=== PATIENT | female | born 1980 | race Caucasian/White ===

== ENCOUNTER 2017-10-30 15:54 | Emergency (ER) | payer BC ==
[2017-10-30 16:21] VITALS: O2SAT 99
[2017-10-30] MEDS ORDERED: MOTRIN 400 MG PO ONE (16:40)
[2017-10-30] MEDS ORDERED: XYLOCAINE 1% HCL 20 ML MDV IJ ONE (16:42)
--- NOTE | 2017-10-30 16:43 | ERPHSYRPT ---
- History of Present Illness Time Seen by Provider: 10/30/17 16:20 Source: patient Exam Limitations: clinical condition Patient Subjective Stated Complaint: FELL THIS MORNING COMING OUT OF HOUSE DOWN STEPS. STEPS WERE WET FROM RAIN. STATES SWELLING AND PAIN IN LEFT FOOT AND ANKLE , WELL RIGHT ELBOW GOT PROGRESSIVELY WORSENED THOUGHOUT DAY. Triage Nursing Assessment: LEFT FOOT MILDLY SWOLLEN, BRUISING TO TOP OF FOOT. RIGHT ELBOW EDEMA. 3CM LACERATION JUST DISTAL TO ELBOW. Physician History: PATIENT SLIPPED ONTO STEPS, FELL AND INJURED THE TOP OF HER LEFT FOOT AND RIGHT ELBOW. DENIES HEAD, NECK OR BACK INJURY. PATIENT COMPLAINS OF PAIN IN FOOT AND ELBOW. Occurred: this morning Reason for Fall: slipped Injuries/Pain Location: upper extremity, lower extremity Loss of Consciousness: no loss of consciousness Severity of Pain-Max: moderate Severity of Pain-Current: moderate Modifying Factors: Improves With: movement Associated Symptoms (Fall): other (RIGHT ELBOW PAIN) Allergies/Adverse Reactions: No Known Drug Allergies Allergy (Verified 08/07/15 15:39) Home Medications: Phentermine HCl [Adipex-P] 37.5 mg PO DAILY 10/30/17 [History] Hx Tetanus, Diphtheria Vaccination/Date Given: Yes Hx Influenza Vaccination/Date Given: No Hx Pneumococcal Vaccination/Date Given: No Immunizations Up to Date: Yes - Review of Systems Constitutional: No Symptoms Musculoskeletal: Injury, Joint Pain, Joint Swelling Neurological: No Symptoms - Past Medical History Pertinent Past Medical History: Yes Neurological History: Migraines History: Other Female Reproductive Disorders: Other Other Medical History: ectopic rupture, miscarriage - Past Surgical History Past Surgical History: Yes Female Surgical History: Other Other Surgical History: ectopic surgery, TUBE REMOVAL - Social History Smoking Status: Former smoker Exposure to second hand smoke: Yes Drug Use: none Patient Lives Alone: No - Female History Hx Last Menstrual Period: 10/14/17 Hx Now: No - Nursing Vital Signs Nursing Vital Signs: Initial Vital Signs Temperature 98.8 F 10/30/17 15:55 Pulse Rate 100 H 10/30/17 15:55 Respiratory Rate 22 10/30/17 15:55 Blood Pressure 123/89 10/30/17 15:55 O2 Sat by Pulse Oximetry 99 10/30/17 15:55 Pain Scale Pain Intensity 2 - Physical Exam General Appearance: mild distress Extremity Exam: swelling (PROXIMAL LEFT FOOT MID 3RD TO 5TH METATARSAL, NO ECCHYMOSIS OR CREPITUS), tenderness ( ), other (LEFT PEDIS PULSE 2+, THERE IS A 1.5 CM LACERATION PROXIMAL FOREARM DORSUM, NO CREPITUS NO EVIDENC OF FOREIGN BODY) Neurologic Exam: alert, oriented x 3 SpO2: 99 Oxygen Delivery: Room Air Procedures - Laceration/Wound Repair Right Arm Wound Location: Right (FOREARM) Wound Length (cm): 1.5 Wound's Depth, Shape: superficial, linear Wound Explored: clean Irrigated: Yes Hibiclens Prep: Yes Anesthesia: local, 1% Lidocaine Volume Anesthetic (ccs): 3 Wound Repaired With: sutures Suture Size/Type: 4-0 Number of Sutures: 4 Layer Closure?: No - Radiology Exams Right Elbow X-ray Interpretation: Interpreted by me, Negative, No Fracture (NO DISLOCATION) Left Foot X-ray Interpretation: Interpreted by me, Negative, No Fracture Ordered Tests: Active Orders 24 hr Category Date Time Status ELBOW (MINIMUM 3 VIEWS) Stat Exams 10/30/17 16:42 Taken FOOT (MINIMUM 3 VIEWS) Routine Exams 10/30/17 Ordered Medication Summary Discontinued Medications Generic Name Dose Route Start Last Admin Trade Name Freq PRN Reason Stop Dose Admin Ibuprofen 400 mg 10/30/17 16:40 10/30/17 16:45 Motrin 400 Mg PO 10/30/17 16:41 400 mg STAT ONE Administration Ibuprofen Confirm 10/30/17 16:44 Motrin 400 Mg Administered 10/30/17 16:45 Dose 400 mg .ROUTE .STK-MED ONE Lidocaine HCl 3 ml 10/30/17 16:42 10/30/17 16:45 Xylocaine 1% Hcl 20 Ml Mdv IJ 10/30/17 16:43 3 ml STAT ONE Administration - Progress Progress Note: 10/30/17 18:06 ADMINISTERED CRUTCHES, AND MOTRIN 600MG ORALLY Counseled pt/family regarding: diagnosis, rad results - Departure Time of Disposition: 18:13 Departure Disposition: Home Clinical Impression: LACERATION RIGHT FOREARM, RIGHT FOREARM CONTUSION, LEFT FOOT CONTUSION Condition: Stable Critical Care Time: No Referrals: JOSE CASTELLON NP [Primary Care Provider] - Additional Instructions: AMBULATE USING CRUTCHES NONWEIGHT BEARING LEFT FOOT X 1 WEEK. APPLY ICE OVER FOOT SWELLING AND FOREARM SWELLING EVERY 4 HOURS, 30 MINUTES FOR 48 HOURS. MOTRIN 600MG EVERY 6 HOURS FOR PAIN, TYLENOL #3 EVERY 6 HOURS FOR SEVERE PAIN. HAVE STITCHES REMOVED AT 10 DAYS. ANTIBIOTIC KEFLEX 500MG EVERY 8 HOURS FOR 7 DAYS. WATCH FOR SIGNS OF INFECTION, REDNESS, SWELLING OR DRAINAGE. Prescriptions: Codeine Phosphate/APAP #3 [Tylenol #3 Tablet] 1 tab PO Q6H PRN PRN #10 tablet PRN Reason: Pain Ibuprofen 600 mg PO Q6H PRN PRN #20 tablet PRN Reason: Pain Cephalexin Mh 500 mg [Keflex 500 mg] 500 mg PO TID #21 capsule
[2017-10-30] MEDS ORDERED: MOTRIN 400 MG ONE (16:44)
[2017-10-30 17:34] VITALS: BP 118/80; PULSE 92
--- NOTE | 2017-10-31 11:27 | XRAY ---
Exam: 3 view right elbow series from 10/30/2017. Comparison: None. Indication: Patient fell down stairs today, complains of right elbow pain and limited range of motion. Findings: AP, lateral, and oblique images of the right elbow were obtained. I see no acute fracture, dislocation, or joint effusion. The right elbow joint space appears well-preserved and reveals smooth articular margins. No periarticular soft tissue calcifications are evident. Impression: 1. No acute right elbow fracture, dislocation, or joint effusion is seen.
--- NOTE | 2017-10-31 13:46 | XRAY ---
Exam: 3 view left foot series from 10/30/2017. Comparison: None. Indication: 37-year-old female fell down stairs, complains of left foot pain and limited range of motion. Findings: AP, oblique, and lateral radiographs of the left foot were obtained. I see no acute left foot fracture or dislocation. There is a high plantar arch of the hindfoot on the lateral radiograph. The joint spaces appear unremarkable. No radiopaque soft tissue foreign body is seen. There is a tiny calcification adjacent to the medial aspect of the distal left fifth metatarsal head. I believe this is old and nonspecific. The base of the left fifth metatarsal appears intact. 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 No other bone lesion is seen. Impression: 1. No acute left foot fracture or dislocation is seen. 2. The patient is incidentally noted to have a high plantar arch on the lateral radiograph.
== END 2017-10-30 18:30 | disposition home or self-care (01) ==
LOC: ED 15:54
PROC: 0HQDXZZ Repair Right Lower Arm Skin, External Approach (ICD-10-PCS; principal; 2017-10-30)
DX: S51.811A Laceration without foreign body of right forearm, initial encounter (principal); S90.32XA Contusion of left foot, initial encounter; S50.11XA Contusion of right forearm, initial encounter; M79.672 Pain in left foot; M25.521 Pain in right elbow; W01.0XXA Fall on same level from slipping, tripping and stumbling without subsequent striking against object, initial encounter; Y93.01 Activity, walking, marching and hiking; Y92.009 Unspecified place in unspecified non-institutional (private) residence as the place of occurrence of the external cause
CPT/HCPCS: 12001; 73080; 73630; 96372; 99284; A9270-GY

== ENCOUNTER 2021-04-01 18:51 | Emergency (ER) | payer BC ==
--- NOTE | 2021-04-01 18:57 | ERPHSYRPT ---
- History of Present Illness Time Seen by Provider: 04/01/21 18:57 Source: patient Physician History: This is a 40-year-old white female who presents to the emergency department soon after a pull-up bar had fallen and hit the top of her head. She stated that it run her [place] but did not cause her to lose consciousness. She does feel dizzy and nauseated. She has not vomited. She is not on any anticoagulation therapy. She does have a history of migraine headaches. Occurred: just prior to arrival Severity: mild Head Injury Location: parietal Method of Injury: direct blow Loss of Consciousness: no loss of consciousness, dazed Associated Symptoms: nausea, other (Dizziness) Allergies/Adverse Reactions: No Known Drug Allergies Allergy (Verified 04/01/21 18:56) Hx Tetanus, Diphtheria Vaccination/Date Given: Yes Hx Influenza Vaccination/Date Given: No Hx Pneumococcal Vaccination/Date Given: No Travel Risk - International Travel Have you traveled outside of the country in past 3 weeks: No - Coronavirus Screening Are you exhibiting any of the following symptoms?: No Close contact with a COVID-19 positive Pt in past 14-21 Days: No - Review of Systems Constitutional: No Symptoms Eyes: No Symptoms Ears, Nose, & Throat: No Symptoms Respiratory: No Symptoms Cardiac: No Symptoms Abdominal/Gastrointestinal: No Symptoms Genitourinary Symptoms: No Symptoms Musculoskeletal: No Symptoms Skin: No Symptoms Neurological: Dizziness, Headache Psychological: No Symptoms Endocrine: No Symptoms Hematologic/Lymphatic: No Symptoms Immunological/Allergic: No Symptoms All Other Systems: Reviewed and Negative - Past Medical History Pertinent Past Medical History: Yes Neurological History: Migraines ENT History: No Pertinent History Cardiac History: No Pertinent History Respiratory History: No Pertinent History Endocrine Medical History: No Pertinent History Musculoskeletal History: No Pertinent History GI Medical History: No Pertinent History History: No Pertinent History Psycho-Social History: No Pertinent History Female Reproductive Disorders: No Pertinent History, Other Other Medical History: ectopic rupture, miscarriage - Past Surgical History Past Surgical History: Yes Female Surgical History: Other Other Surgical History: ectopic surgery, TUBE REMOVAL - Social History Smoking Status: Former smoker Exposure to second hand smoke: Yes Drug Use: none Patient Lives Alone: No - Nursing Vital Signs Nursing Vital Signs: Initial Vital Signs Temperature 97.6 F 04/01/21 18:57 Pulse Rate 102 H 04/01/21 18:57 Respiratory Rate 18 04/01/21 18:57 Blood Pressure 173/109 04/01/21 18:57 O2 Sat by Pulse Oximetry 100 04/01/21 18:57 Pain Scale Pain Intensity 4 - Joellen Coma Score Best Eye Response ([place]): (4) open spontaneously Best Verbal Response ([place]): (5) oriented Best Motor Response ([place]): (6) obeys commands [place] Total: 15 - Physical Exam General Appearance: no apparent distress, alert, anxiety Head Injury: tenderness (Parietal region. 1 to 2 mm puncture site without active bleeding present.), No active bleeding, No raccoon eyes Eye Exam: bilateral eye: normal inspection, PERRL, EOMI ENT Exam: airway nml Neck Exam: supple, trachea midline, full range of motion, normal alignment, normal inspection Cardiovascular/Respiratory Exam: chest non-tender, no respiratory distress Gastrointestinal/Abdominal Exam: non tender Pelvic Exam: not done Rectal Exam: not done Back Exam: normal inspection, normal range of motion, No CVA tenderness, No vertebral tenderness Extremity Exam: non-tender, normal range of motion, normal inspection Mental Status Exam: alert, oriented x 3, 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 Exam: normal hearing, normal speech, PERRL Coordination/Gait Exam: normal gait, normal cerebellar function Motor/Sensory Exam: no motor deficit, no sensory deficit Skin Exam: normal color, warm, dry Lymphatic Exam: No adenopathy SpO2 Interpretation: normal O2 Delivery: Room Air - Course Nursing assessment & vital signs reviewed: Yes Ordered Tests: Active Orders 24 hr Category Date Time Status HEAD WITHOUT CONTRAST [CT] Stat Exams 04/01/21 19:06 Completed Medication Summary Discontinued Medications Generic Name Dose Route Start Last Admin Trade Name Stephane PRN Reason Stop Dose Admin Hydrocodone Bitart/Acetaminophen 1 tab 04/01/21 19:22 04/01/21 19:27 Hydrocodone/Apap 5/325 Mg Tablet PO 04/01/21 19:23 1 tab STAT ONE Administration Hydrocodone Bitart/Acetaminophen Confirm 04/01/21 19:26 Hydrocodone/Apap 5/325 Mg Tablet Administered 04/01/21 19:27 Dose 1 tab .ROUTE .STK-MED ONE - Progress Progress: improved Progress Note: 04/01/21 20:29 CAT scan of the head shows no acute intracranial abnormality. Counseled pt/family regarding: diagnosis, need for follow-up, rad results - Departure Departure Disposition: Home Clinical Impression: Head contusion Condition: Stable Critical Care Time: No Referrals: JOSE CASTELLON NP [Primary Care Provider] - Follow up/PCP as directed Additional Instructions: Keep the area clean with soap and water. Ice pack to the area 2-3 times a day for the next 48 hours. Use Tylenol and ibuprofen for pain control.
[2021-04-01] MEDS ORDERED: NORCO 5/325 MG PO ONE (19:22)
[2021-04-01] MEDS ORDERED: NORCO 5/325 MG ONE (19:26)
--- NOTE | 2021-04-01 20:19 | XRAY ---
Indication: Pain and nausea following head injury. Multiple contiguous axial images obtained through the head without contrast. Comparison: October 27, 2013. Normal appearing brain parenchyma, ventricles, and bony calvarium. Visualized paranasal sinuses and mastoid air cells are clear. Impression: Continued normal CT head without contrast exam.
[2021-04-01 20:34] VITALS: BP 104/82; PULSE 66; O2SAT 99
== END 2021-04-01 20:36 | disposition home or self-care (01) ==
LOC: ED 18:51
DX: S00.93XA Contusion of unspecified part of head, initial encounter (principal); W20.8XXA Other cause of strike by thrown, projected or falling object, initial encounter; Y93.B2 Activity, push-ups, pull-ups, sit-ups
CPT/HCPCS: 70450; 99283; A9270-GY

== ENCOUNTER 2022-05-04 16:26 | Emergency (ER) | payer BC ==
[2022-05-04 16:38] VITALS: O2SAT 100
[2022-05-04] MEDS ORDERED: Sodium Chloride 0.9% 1000 ML 1,000 ML IV STA (16:42)
[2022-05-04] MEDS ORDERED: Zofran 4 MG/2 ML VIAL IV ONE (16:42)
[2022-05-04] MEDS ORDERED: TORAdol 30 mg Injection IV ONE (16:43)
[2022-05-04] MEDS ORDERED: TORAdol 30 mg Injection ONE (16:44)
[2022-05-04] MEDS ORDERED: Zofran 4 MG/2 ML VIAL ONE (16:44)
[2022-05-04] MEDS ORDERED: Sodium Chloride 0.9% 1000 ML 1,000 ML ONE (16:45)
--- NOTE | 2022-05-04 16:51 | ERPHSYRPT ---
- History of Present Illness Historian: patient Exam Limitations: no limitations Patient Subjective Stated Complaint: Pt states "I have had the stomach bug since sunday. Nausea and vomiting and diarrhea. I need some fluids." Triage Nursing Assessment: PT presented alert and oriented X 3, skin wpd. PT ambulates with an upright steady gait, able to speak in clear full sentences pt in no apaprent respiratory distres. Physician History: 41 yo WF w N/V/D x1day. Pt has myalgias/chills/headache. She denies hematemesis/melena/hematochezia/dysuria/hematuria//chest pain/dyspnea. Pt has mild abdominal cramping. Timing/Duration: yesterday Activities at Onset: rest Quality: cramping Severity of Pain-Max: mild Severity of Pain-Current: mild Modifying Factors: Improves With: nothing Associated Symptoms: diarrhea, nausea, vomiting Previous symptoms: no prior history Allergies/Adverse Reactions: No Known Drug Allergies Allergy (Verified 04/01/21 18:56) Home Medications: Lisdexamfetamine Dimesylate [Vyvanse] 40 mg PO DAILY 05/04/22 [History] Lisinopril 10 mg [Zestril 10 MG] 10 mg PO DAILY 05/04/22 [History] Sertraline HCl [Zoloft] 100 mg PO DAILY 05/04/22 [History] Hx Tetanus, Diphtheria Vaccination/Date Given: No Hx Influenza Vaccination/Date Given: No Hx Pneumococcal Vaccination/Date Given: No Immunizations Up to Date: Yes Travel Risk - International Travel Have you traveled outside of the country in past 3 weeks: No - Coronavirus Screening Are you exhibiting any of the following symptoms?: Yes Symptoms: Vomiting/Diarrhea, Headaches/Body Aches/Fatigue - Vaccine Status Have you recieved a Covid-19 vaccination: No - Review of Systems Constitutional: No Symptoms, Chills, Fatigue, Malaise Eyes: No Symptoms Ears, Nose, & Throat: No Symptoms Respiratory: No Symptoms Cardiac: No Symptoms Abdominal/Gastrointestinal: No Symptoms, Nausea, Vomiting, Diarrhea Genitourinary Symptoms: No Symptoms Musculoskeletal: No Symptoms Skin: No Symptoms Neurological: No Symptoms Psychological: No Symptoms Endocrine: No Symptoms Hematologic/Lymphatic: No Symptoms Immunological/Allergic: No Symptoms - Past Medical History Pertinent Past Medical History: Yes Neurological History: Migraines ENT History: No Pertinent History Cardiac History: No Pertinent History Respiratory History: No Pertinent History Endocrine Medical History: No Pertinent History Musculoskeletal History: No Pertinent History GI Medical History: No Pertinent History History: No Pertinent History Psycho-Social History: No Pertinent History Female Reproductive Disorders: No Pertinent History, Other Other Medical History: ectopic rupture, miscarriage - Past Surgical History Past Surgical History: Yes Neuro Surgical History: No Pertinent History Cardiac: No Pertinent History Respiratory: No Pertinent History Gastrointestinal: No Pertinent History Genitourinary: No Pertinent History Musculoskeletal: No Pertinent History Female Surgical History: Other Other Surgical History: ectopic surgery, TUBE REMOVAL - Social History Smoking Status: Former smoker How long have you smoked: years Exposure to second hand smoke: No Drug Use: none Patient Lives Alone: No - Female History Hx Last Menstrual Period: 04/19/2022 Hx Now: No - Nursing Vital Signs Nursing Vital Signs: Initial Vital Signs Temperature 97.3 F 05/04/22 16:33 Pulse Rate 112 H 05/04/22 16:33 Respiratory Rate 20 05/04/22 16:33 Blood Pressure 140/76 05/04/22 16:33 O2 Sat by Pulse Oximetry 100 05/04/22 16:33 Pain Scale Pain Intensity 0 Hypertensive/Mildly tachy - Physical Exam General Appearance: no apparent distress Eye Exam: PERRL/EOMI, eyes nml inspection Ears, Nose, Throat Exam: normal ENT inspection, TMs normal, pharynx normal, dry mucous membranes Neck Exam: normal inspection, non-tender, supple, full range of motion, No meningismus, No mass, No Brudzinski, No Kernig's, No carotid bruit Respiratory Exam: normal breath sounds, lungs clear, airway intact Cardiovascular Exam: tachycardia, capillary refill <2 sec, No murmur Gastrointestinal/Abdomen Exam: soft, normal bowel sounds, No tenderness Back Exam: normal inspection Extremity Exam: normal inspection, normal range of motion Neurologic Exam: alert, oriented x 3, cooperative, 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 as tested, normal mood/affect, nml cerebellar function, nml station & gait, sensation nml, No motor deficits, No sensory deficit Skin Exam: normal color, warm, dry Lymphatic Exam: No adenopathy SpO2 Interpretation: normal SpO2: 100 O2 Delivery: Room Air Ordered Tests: Medication Summary Discontinued Medications Generic Name Dose Route Start Last Admin Trade Name Freq PRN Reason Stop Dose Admin Sodium Chloride 1,000 mls @ 999 mls/hr 05/04/22 16:42 05/04/22 17:54 Sodium Chloride 0.9% 1000 Ml IV 05/04/22 17:42 Infused .Q1H1M STA Infusion Sodium Chloride Confirm 05/04/22 16:45 Sodium Chloride 0.9% 1000 Ml Administered 05/04/22 16:46 Dose 1,000 mls @ ud .ROUTE .STK-MED ONE Ketorolac Tromethamine 15 mg 05/04/22 16:43 05/04/22 16:46 Ketorolac Tromethamine 30 Mg/Ml Inj IV 05/04/22 16:44 15 mg STAT ONE Administration Ketorolac Tromethamine Confirm 05/04/22 16:44 Ketorolac Tromethamine 30 Mg/Ml Inj Administered 05/04/22 16:45 Dose 30 mg .ROUTE .STK-MED ONE Ondansetron HCl 4 mg 05/04/22 16:42 05/04/22 16:46 Ondansetron Hcl 4 Mg/2 Ml Vial IV 05/04/22 16:43 4 mg STAT ONE Administration Ondansetron HCl Confirm 05/04/22 16:44 Ondansetron Hcl 4 Mg/2 Ml Vial Administered 05/04/22 16:45 Dose 4 mg .ROUTE .STK-MED ONE - Progress Progress Note: 05/04/22 23:44 Nursing note and vital signs reviewed No food or housing insecurities noted 1L NS bolus/4mg IV Zofran/15mg IV toradol w marked improvement Pt most likely has Norovirus wo evidence of surgical abdomen Counseled pt/family regarding: diagnosis, need for follow-up - Departure Departure Disposition: Home Clinical Impression: Norovirus Condition: Stable Critical Care Time: No Referrals: JOSE CASTELLON NP [Primary Care Provider] - Follow up/PCP as directed Instructions: Norovirus (DC) Additional Instructions: Fluids/Rest Zofran for nausea/vomiting Return to the ER for inability to hold down fluids or increasing abdominal pain Prescriptions: Ondansetron ODT 4 MG [Zofran Odt 4 mg] 4 mg PO Q6H PRN PRN #10 tablet PRN Reason: Nausea
[2022-05-04 17:56] VITALS: BP 121/76; PULSE 86
== END 2022-05-04 18:14 | disposition home or self-care (01) ==
LOC: ED 16:26
DX: A08.11 Acute gastroenteropathy due to Norwalk agent (principal); R11.2 Nausea with vomiting, unspecified; R19.7 Diarrhea, unspecified; M79.10 Myalgia, unspecified site; R68.83 Chills (without fever); R51.9 Headache, unspecified; R10.9 Unspecified abdominal pain; Z79.899 Other long term (current) drug therapy; Z28.310 Unvaccinated for COVID-19
CPT/HCPCS: 96374; 96375; 99283; J1885; J2405

== ENCOUNTER 2024-03-22 04:12 | Emergency (ER) | payer BC ==
[2024-03-22 04:26] VITALS: RESP 18; TEMP 97.3; O2SAT 100
[2024-03-22] MEDS ORDERED: Fluor-I-Strip/Ful-Flo OP ONE (04:29)
[2024-03-22] MEDS ORDERED: TETRACAINE 0.5% STERI-UNIT SOL OP ONE (04:29)
[2024-03-22] MEDS ORDERED: NORCO 5/325 MG ONE (04:37)
--- NOTE | 2024-03-22 04:38 | ERPHSYRPT ---
- History of Present Illness Source: patient Exam Limitations: no limitations Patient Subjective Stated Complaint: pt states that she has shingles and can not get any rest Triage Nursing Assessment: pt ambulated into the er; pt is axo x4; pt is tearful and crying; pt c/o headache; pt states 8/10 pain to head; skin abrasion to forehead; pupils 3 mm and PERRL; no respiratory distress present; vitals wnl Physician History: Patient has shingles. It is in her ophthalmic nerve. She got seen and put on acyclovir yesterday. The symptoms been there about 4 days. Is mainly on her forehead but she says is moving down into her face. She says she feels a through her nose and eye. There are no lesions there just pain. She is not on any eyedrops at this time. She does not have any redness around her eye or evidence of corneal involvement. Severity: moderate, severe Allergies/Adverse Reactions: No Known Drug Allergies Allergy (Verified 03/22/24 04:17) Home Medications: Lisdexamfetamine Dimesylate [Vyvanse] 40 mg PO DAILY 05/04/22 [History] Sertraline HCl [Zoloft] 100 mg PO DAILY 05/04/22 [History] Cyclobenzaprine HCl 10 mg [Cyclobenzaprine 10 MG] 10 mg PO HS 03/22/24 [History] Tirzepatide [Mounjaro] 5 mg SQ WEEKLY 03/22/24 [History] Valacyclovir HCl [Valacyclovir] 1 tab PO TID 03/22/24 [History] Hx Tetanus, Diphtheria Vaccination/Date Given: No Hx Influenza Vaccination/Date Given: Yes Hx Pneumococcal Vaccination/Date Given: No Travel Risk - International Travel Have you traveled outside of the country in past 3 weeks: No - Emerging Infectious Disease Are you exhibiting symptoms associated with any current EIDs: No - Review of Systems Constitutional: No Symptoms Eyes: No Symptoms Ears, Nose, & Throat: No Symptoms Skin: Skin Lesions (Shingles on the forehead) - Past Medical History Pertinent Past Medical History: Yes Neurological History: Migraines ENT History: No Pertinent History Cardiac History: No Pertinent History Respiratory History: No Pertinent History Endocrine Medical History: No Pertinent History Musculoskeletal History: No Pertinent History GI Medical History: No Pertinent History History: No Pertinent History Psycho-Social History: No Pertinent History Female Reproductive Disorders: No Pertinent History, Other Other Medical History: ectopic rupture, miscarriage - Past Surgical History Past Surgical History: Yes Neuro Surgical History: No Pertinent History Cardiac: No Pertinent History Respiratory: No Pertinent History Gastrointestinal: No Pertinent History Genitourinary: No Pertinent History Musculoskeletal: No Pertinent History Female Surgical History: Other Other Surgical History: ectopic surgery, TUBE REMOVAL - Female History Hx Last Menstrual Period: 10/04/2013 Hx Now: No - Social History Smoking Status: Former smoker How long have you smoked: years Exposure to second hand smoke: No Drug Use: none - Social Determinants of Health Will the patient participate in the screening: Yes Do you worry about a steady place to live?: No Do you have any problems with any of the following?: No known problems In the past 12 months,have you had to go without utilities?: No Transportation Issues: No Has anyone in your support network made you feel unsafe?: No Have you or anyone in your house had to go w/o enough food: No - Nursing Vital Signs Nursing Vital Signs: Initial Vital Signs Temperature 97.3 F 03/22/24 04:18 Pulse Rate 98 H 03/22/24 04:18 Respiratory Rate 18 03/22/24 04:18 Blood Pressure 129/89 03/22/24 04:18 O2 Sat by Pulse Oximetry 100 03/22/24 04:18 Pain Scale Pain Intensity 8 - Physical Exam General Appearance: no apparent distress Eye Exam: other (Fluorescein test showed no evidence of keratitis) Skin Exam: other (Rash consistent with shingles on the forehead. There is nothing on the nose) SpO2: 100 - Progress Progress Note: Patient was stable throughout stay.I am going to start her on Viroptic and give her some [place] for pain. I would have her follow-up in a day or 2. 03/22/24 04:39 - Departure Departure Disposition: Home Clinical Impression: Herpes zoster ophthalmicus Condition: Stable Critical Care Time: No Referrals: JOSE CASTELLON NP [Primary Care Provider] - Follow up/PCP as directed
[2024-03-22] MEDS: NORCO 5/325 MG PO ONE (04:39)
[2024-03-22] MEDS: Fluor-I-Strip/Ful-Flo OP ONE (04:43)
[2024-03-22] MEDS: TETRACAINE 0.5% STERI-UNIT SOL OP STA (04:43)
[2024-03-22 04:46] VITALS: BP 103/85; PULSE 83
== END 2024-03-22 04:49 | disposition home or self-care (01) ==
LOC: ED 04:12
DX: B02.30 Zoster ocular disease, unspecified (principal); Z79.85 Long-term (current) use of injectable non-insulin antidiabetic drugs; Z79.899 Other long term (current) drug therapy
CPT/HCPCS: 99283; A9270-GY

== ENCOUNTER 2024-10-27 06:32 | Day surgery (SDC) | payer BC ==
[2024-10-27 06:59] LABS: HCG URINE TEST NEGATIVE (NEGATIVE)
[2024-10-27] MEDS ORDERED: Lactated Ringers 1,000 ML IV ONE (06:59)
[2024-10-27] MEDS ORDERED: Lactated Ringers 1,000 ML IV SCH (07:00)
[2024-10-27 07:14] VITALS: RESP 16
[2024-10-27] MEDS ORDERED: propofoL IV ONE ×2 (07:56→08:11)
[2024-10-27 08:35] LABS: BASOPHIL % 0.7 % (0.1-1.2); Basophil (Absolute #) 0.04 x10^3/uL (0.01-0.08); Eosinophil (Absolute #) 0.11 x10^3/uL (0.04-0.36); Hematocrit 36.7 % (34.1-44.9); Hemoglobin 11.8 g/dL (11.2-15.7); IMMATURE GRAN # 0.01 x10^3u/L (0.001-0.031); IMMATURE GRAN % 0.2 % (0.001-0.429); Lymphocyte (Absolute #) 1.69 x10^3/uL (1.18-3.74); Mean Corpuscular Hemoglobin 28.1 pg (25.6-32.2); Mean Corpuscular Hgb Concent. 32.2 g/dL (32.2-35.5); Monocyte (Absolute #) 0.62 x10^3/uL (0.24-0.86); NUCLEATED RBC # 0.00 x10^3u/L (0.00-0.012); NUCLEATED RBC % 0.0 % (0.00-0.2); Platelet Count 283 x10^3/uL (182-369); Red Blood Count 4.20 x10^6/uL (3.93-5.22); White Blood Count 6.0 x10^3/uL (3.98-10.04)
[2024-10-27 08:40] LABS: Calcium 8.9 mg/dL (8.4-10.2); Carbon Dioxide 25.0 mmol/L (22-30); Creatinine 1 0.77 mg/dL (0.52-1.04); EST GLOMERULAR FILTRATION RATE 96.9 ML/MIN; Glucose 89.0 mg/dL (74-106); Potassium 3.6 mmol/L (3.5-5.1); SGOT/AST 40.0 U/L (14-36); SGPT/ALT 16.0 U/L (0-35); Total Protein 7.0 g/dL (6.3-8.2)
[2024-10-27 08:49] VITALS: O2SAT 100
[2024-10-27 09:03] VITALS: BP 107/79; PULSE 79; TEMP 98
[2024-10-28 07:51] LABS: FSH 4.1 mIU/mL (.)
--- NOTE | 2024-10-28 10:24 | OP ---
SURGERY DATE/TIME: 10/27/2024 [id number] PREOPERATIVE DIAGNOSIS: Screening exam. POSTOPERATIVE DIAGNOSIS: Normal colon. PROCEDURE: Colonoscopy. SURGEON: Jose Harding MD. ANESTHESIA: Medication given by the anesthesia department. INDICATIONS: The patient is a 44-year-old white female presenting now for screening colonoscopy. The patient was apprised of the risks of the procedure including risk of perforation, phlebitis, untoward reaction to medication, bleeding, and missed lesions. The patient verbalized her understanding and desired to have procedure performed. DESCRIPTION OF PROCEDURE AND FINDINGS: The patient was given medication by the anesthesia department and had continuous pulse oximetry, ECG monitoring, and intermittent blood pressure monitoring during the examination. She was placed in left lateral decubitus position. Digital rectal examination was performed and revealed normal anal sphincter tone and no masses. The flexible Olympus videocolonoscope was used to intubate the rectum. A view of the colon was developed sequentially to the cecum. Upon insertion and withdrawal including retroflexed view in the rectum, no mucosal lesions were encountered. The scope was removed from the patient who tolerated the procedure well and was sent back to outpatient recovery in good condition. The prep was noted to be fair to poor.
== END 2024-10-27 09:10 | disposition home or self-care (01) ==
LOC: SDC 06:32
PROVIDERS: ATTEND Family Medicine
DX: Z12.11 Encounter for screening for malignant neoplasm of colon (principal); E88.819 Insulin resistance, unspecified; Z79.899 Other long term (current) drug therapy; R68.82 Decreased libido; R53.83 Other fatigue; Z79.890 Hormone replacement therapy; N94.9 Unspecified condition associated with female genital organs and menstrual cycle